=== PATIENT | male | born 1990 | race Caucasian/White ===

== ENCOUNTER 2024-10-22 15:46 | Emergency (ER) | payer OTHER ==
[~2024-10-22] VITALS: Ht 188 cm; Wt 124.7 kg
[~2024-10-22 15:46] MED LIST: GENTAK5 ML OPTH; IBU800 MG PO; PENICILLIN V P500 MG PO
[2024-10-22] MEDS ORDERED: HYDROmorphone HCL 1 MG/ML SYR IV ONE ×3 (16:00→19:30)
[2024-10-22] MEDS ORDERED: ondansetron HCL 4 MG/2 ML VIAL IV ONE (16:00)
[2024-10-22] MEDS ORDERED: LACTATED RINGER'S 1,000 ML IV ONE (16:00)
[2024-10-22 16:02] LABS: BASOPHILS 0.4 % (0-2); EOSINOPHILS 0.6 % (0-6); HEMATOCRIT 39.3 % (35.0-50.0); HEMOGLOBIN 13.2 g/dL (12.0-18.0); LYMPHOCYTES 18.1 % (24-44); MCHC 33.6 g/dl (30-36); MCV 92.3 fl (81-99); MONOCYTES 7.3 % (0-12); NEUTROPHILS 73.6 % (39-80); PLATELET COUNT 380 K/uL (140-440); RBC 4.25 M/ul (4.3-5.7); RDW 13.1 (10.5-15.0)
[2024-10-22 16:15] LABS: ALBUMIN 3.8 g/dL (3.4-5.0); ALBUMIN/GLOBULIN RATIO 0.97 (1.1-2.4); BILIRUBIN, TOTAL 0.3 ng/dL (0.2-1.0); BUN/CREATININE RATIO 13.44 (6.0-28.6); CALCIUM 8.7 mg/dL (8.5-10.1); CREATININE, SERUM 1.19 mg/dL (0.70-1.30); PROTEIN, TOTAL 7.7 g/dL (6.4-8.2)
[2024-10-22 16:33] LABS: ABO O; ANTIBODY SCREEN NEGATIVE; RH POSITIVE
[2024-10-22 18:39] LABS: BILIRUBIN, URINE NEGATIVE (negative); BLOOD/HGB, URINE MODERATE (Negative); KETONE, URINE NEGATIVE (Negative); LEUK ESTERASE, URINE NEGATIVE (negative); NITRITE, URINE NEGATIVE (negative); PH, URINE 5.5 (5-7)
[2024-10-22 18:53] LABS: BACTERIA, URINE RARE /hpf (negative); CASTS, URINE HYALINE 1+ \\lpf; COLLECTION TYPE, URINE CLEAN CATCH; CRYSTALS, URINE NONE SEEN (0-1+); EPITHELIAL CELLS, URINE SQUAMOUS 1+ /lpf (0-1+); REFLEX CULTURE, URINE No (No)
[2024-10-22 19:03] LABS: BARBITURATES, URINE NEGATIVE (NEGATIVE); BENZODIAZEPINE, URINE NEGATIVE (NEGATIVE); BUPRENORPHINE, URINE NEGATIVE (NEGATIVE); CANNABINOID, URINE POSITIVE (NEGATIVE); COCAINE, URINE NEGATIVE (NEGATIVE); ECSTASY, URINE NEGATIVE (NEGATIVE); FENTANYL, URINE POSITIVE (NEGATIVE); METHADONE, URINE NEGATIVE (NEGATIVE); OPIATES, URINE POSITIVE (NEGATIVE); OXYCODONE, URINE NEGATIVE (NEGATIVE); PHENCYCLIDINE, URINE NEGATIVE (NEGATIVE)
[2024-10-22 19:22] LABS: AMPHETAMINES, URINE NEGATIVE (NEGATIVE)
[2024-10-22 19:44] VITALS: BP 133/68
== END 2024-10-22 19:44 | disposition short-term general hospital (02) ==
LOC: ED 15:46
PROVIDERS: Emergency Medicine
DX: S22.42XA Multiple fractures of ribs, left side, initial encounter for closed fracture (principal); S27.321A Contusion of lung, unilateral, initial encounter; S27.0XXA Traumatic pneumothorax, initial encounter; S42.212A Unspecified displaced fracture of surgical neck of left humerus, initial encounter for closed fracture; Z87.891 Personal history of nicotine dependence; Z79.2 Long term (current) use of antibiotics; Z79.1 Long term (current) use of non-steroidal anti-inflammatories (NSAID); V89.2XXA Person injured in unspecified motor-vehicle accident, traffic, initial encounter
CPT/HCPCS: 36415; 70450; 70486; 71260; 72125; 73020; 74177; 80053; 80307; 81001; 82553; 83605; 83690; 85025; 86850; 86900; 86901; 99285-25; G0480; J1171; J2405; J7121; Q9967